=== PATIENT | male | born 1950 | race African-American/Black ===

== ENCOUNTER 2017-03-02 17:49 | Emergency (ER) | payer MEDICARE ==
[~2017-03-02] VITALS: Ht 172.7 cm; Wt 76.2 kg
[2017-03-02] MEDS ORDERED: Norco 5mg/325mg tab ORAL ONE (18:15)
--- NOTE | 2017-03-02 18:26 | Emergency Room Report ---
History of Present Illness General Chief Complaint: Pain Source: Patient (Megan Hays) Present Illness HPI 66 YO Male presents to the ED c/o Left upper chest pain s/p walking into a pole yesterday afternoon while hiking. denies cough, denies swelling of the lower extremities , denies cardiac history. Pt. reports pain is exacerbated upon palpation, taking a deep breath and movement. pt. denies puncture wound. reports a small scratch on his chest. Pt. reports he is normally active with no significant Pmhx. Denies CP, Palpitations, LOC, AMS, dizziness, Changes in Vision, Sensation, paresthesias, or a sudden severe headache. (Megan Hays) Allergies: Coded Allergies: No Known Allergies (Unverified , 03/02/17) Patient History Past Medical History: see triage record Past Surgical History: none Pertinent Family History: none Reviewed Nursing Documentation: PMH: Agreed, PSxH: Agreed (Megan Hays) Nursing Documentation-PMH Past Medical History: No Stated History (Megan Hays) Review of Systems All Other Systems: negative except mentioned in HPI (Megan Hays) Physical Exam Vital Signs Date Time Temp Pulse Resp B/P (MAP) Pulse Ox O2 Delivery O2 Flow Rate FiO2 03/02/17 17:54 98.1 60 18 134/82 99 Room Air Sp02 EP Interpretation: reviewed, normal General Appearance: no apparent distress, alert, GCS 15, non-toxic Head: normocephalic, atraumatic ENT: hearing grossly normal, normal voice Neck: full range of motion Respiratory: lungs clear, normal breath sounds, no respiratory distress, no wheezing, speaking full sentences, other - Chest Tenderness to the left upper anterior ribs just below the collarbone. superficial abrasion noted, no bruising , no flail chest, lungs CTA Bilaterally. Cardiovascular #1: regular rate, rhythm, no edema, normal capillary refill Musculoskeletal: back normal, gait/station normal, normal range of motion, non- tender Neurologic: alert, oriented x3, responsive, motor strength/tone normal, sensory intact, normal gait, speech normal Skin: normal color, no rash, warm/dry, well hydrated, abrasions - superficial non-bleeding 1cm abrasion to the left upper chest just below the collar bone. no bruising. (Megan Hays) Medical Decision Making PA Attestation Dr. Vanessa is my supervising Physician whom patient management has been discussed with. (Megan Hays) Diagnostic Impression: Primary Impression: Rib contusion Qualified Codes: S20.212A - Contusion of left front wall of thorax, initial encounter Additional Impression: Abrasion ER Course 66 YO Male presents to the ED c/o Left upper chest pain s/p walking into a pole yesterday afternoon while hiking. denies cough, denies swelling of the lower extremities , denies cardiac history. Pt. reports pain is exacerbated upon palpation, takling a deep breath and movement. pt. denies puncture wound. reports a small scratch on his chest. Pt. reports he is normally active with no significant Pmhx. Ddx considered but are not limited to Fracture, dislocation, contusion, Sprain/ Strain/Spasm. Vital signs: are WNL, pt. is afebrile H&PE are most consistent with musculoskeletal injury will perform imaging to r/ o fractures/dislocations. ORDERS: - X-ray 2 views - negative for fx, Dislocation, or significant soft tissue injury, per preliminary read in ED, and signed by KI Hays, my supervising physician has reviewed, and agrees with my interpretation. ED INTERVENTIONS: - [place] -Pt given a spirometer. DISCHARGE: At this time pt. is stable for d/c to home. Will provide printed patient care instructions, and any necessary prescriptions. Care plan and follow up instructions have been discussed with the patient prior to discharge. (Megan Hays) ER Course I agree with PA's findings on XR interpretation (Isabel Vanessa M.D.) EKG Diagnostic Results EP Interpretation: Dr. Vanessa Rate: bradycardiac - 56 Rhythm: NSR ST Segments: no acute changes ASA given to the pt in ED: No PA Scribe Text this interpretation was scribed by KI Hays (Megan Hays) Chest X-Ray Diagnostic Results Chest X-Ray Diagnostic Results : Chest X-Ray Ordered: Yes # of Views/Limited/Complete: 2 View Indication: Chest Pain EP Interpretation: Yes PA Xray: Interpretation reviewed, by supervising MD, and agrees with findings. Interpretation: no consolidation, no effusion, no pneumothorax, no acute cardiopulmonary disease Impression: No acute disease (Megan Hays) Last Vital Signs Date Time Temp Pulse Resp B/P (MAP) Pulse Ox O2 Delivery O2 Flow Rate FiO2 03/02/17 17:54 98.1 60 18 134/82 99 Room Air (Megan Hays) Disposition: HOME, SELF-CARE Condition: Stable Scripts Ibuprofen* (MOTRIN*) 600 Mg Tablet 600 MG ORAL THREE TIMES A DAY, #30 TAB 0 Refills Prov: Megan Hays 03/02/17 Acetaminophen With Codeine (T#3) (TYLENOL #3 TAB*) Y Tab 1 TAB ORAL Q6HR Y for For Pain, #6 TAB Prov: Megan Hays 03/02/17 Patient Instructions: Rib Contusion Additional Instructions: Take medications as directed. ----Use incentive spirometer as taught. Follow up with a Primary Care Provider in 3-5 days, even if your symptoms have resolved. --Please review list of primary care clinics, if you do not already have a primary care provider Return sooner to ED if new symptoms occur, or current symptoms become worse. - Please note that this Emergency Department Report was dictated using [employer] account manager technology software, occasionally this can lead to erroneous entry secondary to interpretation by the dictation equipment. Megan Hays Mar 02, 2017 18:26 Isabel Vanessa M.D. Mar 04, 2017 01:56
[2017-03-02] MEDS ORDERED: ACETAMINOPHEN-1 EAC1 ORAL (18:57)
[2017-03-02] MEDS ORDERED: IBUPROFEN600 MG ORAL (18:57)
[2017-03-02 19:23] VITALS: BP 134/82
--- NOTE | 2017-03-03 12:50 | Diagnostic Imaging Report ---
Indication: Dyspnea Comparison: None 2 views of the chest obtained. Findings: Cardiomediastinal silhouette and pulmonary vascularity are within normal limits for age. The diaphragmatic contour is smooth and costophrenic angles are sharp. No pleural effusions are identified. The bones are unremarkable. Impression: No acute disease
--- NOTE | 2017-03-03 17:55 | Cardiology Report ---
APPROVED REPORT EKG Measurement Heart [id number] Sinus bradycardia with 1st degree AV block Otherwise normal ECG
== END 2017-03-02 19:00 | disposition home or self-care (01) ==
LOC: EMR 18:00
DX: S20.212A Contusion of left front wall of thorax, initial encounter (principal); S20.312A Abrasion of left front wall of thorax, initial encounter; W22.09XA Striking against other stationary object, initial encounter; Y93.01 Activity, walking, marching and hiking; Y92.89 Other specified places as the place of occurrence of the external cause
CPT/HCPCS: 71046; 93005; 99283